=== PATIENT | male | born 1970 | race African-American/Black ===

== ENCOUNTER 2019-12-31 14:09 | Inpatient (IN) ==
[2019-12-31] MEDS ORDERED: PANTOPRAZOLE INJ 80 MG in SODIUM CHLORIDE 0.9% 100 ML IV STA (14:42)
[2019-12-31] MEDS ORDERED: LACTATED RINGERS 1,000 ML IV ONE (14:47)
[2019-12-31] MEDS ORDERED: PANTOPRAZOLE 40 MG VIAL IV ONE (14:53)
[2019-12-31 15:02] LABS: Basophils # 0.1 10*3/uL (0.0-0.2); Basophils % 0.4 % (0.0-0.8); Eosinophils % 0.1 % (0.00-10.9); Hematocrit 32.5 VOL% (42.0-52.0); Hemoglobin 10.4 GM/DL (14.0-18.0); Immature Granulocytes % 0.5 %; Immature Granulocytes Absolute 0.07 #; Lymphocytes # 2.5 10*3/uL (1.4-4.0); Mean Platelet Volume 10.9 FL (9.6-12.0); Monocytes % 5.2 % (1.7-12.7); Neutrophils % 74.8 % (38.7-73.9); Platelet Count 217 T/CUMM (130-400); Red Blood Count 3.87 MC/CUMM (3.8-5.5); Red Cell Distribution Width 14.9 % (9.3-17.3); White Blood Count 12.9 T/CUMM (4-12)
[2019-12-31 15:27] LABS: Albumin 3.5 G/DL (3.4-5.0); Bilirubin,Total 0.8 MG/DL (0.2-1.0); Calcium 8.8 MG/DL (8.5-10.1); Osmolality,Calculated 293.1 MOS/KG (273-304); Total Protein 6.5 G/DL (6.4-8.3)
[2019-12-31] MEDS ORDERED: ONDANSETRON 4 MG/2 ML VIAL IV PRN (16:27)
[2019-12-31] MEDS ORDERED: PANTOPRAZOLE INJ 200 MG in SODIUM CHLORIDE 0.9% 250 ML IV SCH (16:30)
[2019-12-31] MEDS ORDERED: NICOTINE 14 MG/24 HR PATCH TRANSDERM PRN (16:42)
[2019-12-31 18:42] LABS: Hematocrit 27.3 VOL% (42.0-52.0); Hemoglobin 8.8 GM/DL (14.0-18.0)
[2019-12-31] MEDS: SODIUM CHLORIDE 0.9% 1,000 ML IV SCH (18:47)
[2019-12-31] MEDS ORDERED: INFLUENZA VIRUS VACCINE 0.5 ML SYRINGE IM ONE (19:13)
[2019-12-31] MEDS: PANTOPRAZOLE 40 MG VIAL IV SCH (21:16)
[2019-12-31] MEDS: SODIUM CHLOR 0.45% KCL 20 MEQ 20 MEQ/1,000 ML BAG IV SCH (21:29)
[2019-12-31] MEDS: ALBUTEROL 2.5 MG/3 ML NEB RESP TX SCH ×2 (21:40→23:30)
[2020-01-01 00:09] LABS: Apearance,Urine CLEAR (Clear); Bilirubin,Urine Negative (Negative); Blood, Urine Negative (Negative); Glucose,Urine (UA) Negative (Negative); Ketones,Urine Negative (Negative); Mucus,Urine Occasional /LPF (Occasional); Nitrite,Urine Negative (Negative); Protein,Urine Negative; RBC,Urine 1 /HPF (0-4); Squamous Epithelial Cell,Urine Occasional /HPF (0-10); Urine Color Yellow (Yellow); Urine Specific Gravity 1.025 (1.001-1.035); Urine Urobilinogen < 2.0 EU/DL (0.2-1.0); WBC,Urine 1 /HPF (0-6)
[2020-01-01 00:12] LABS: Barbiturates Screen,Urine Negative (Negative); Benzodiazepines Screen,Urine Negative (Negative); Cannabinoid Screen,Urine Positive (Negative); Opiate Screen,Urine Negative (Negative); Phencyclidine Screen,Urine Negative (Negative)
[2020-01-01 01:13] LABS: Hematocrit 20.1 VOL% (42.0-52.0)
[2020-01-01 01:20] LABS: Hemoglobin 6.4 GM/DL (14.0-18.0)
[2020-01-01 05:22] LABS: Basophils # 0.1 10*3/uL (0.0-0.2); Basophils % 0.7 % (0.0-0.8); Eosinophils % 0.4 % (0.00-10.9); Hematocrit 18.3 VOL% (42.0-52.0); Immature Granulocytes % 0.4 %; Immature Granulocytes Absolute 0.04 #; Lymphocytes # 3.8 10*3/uL (1.4-4.0); Lymphocytes % 34.1 % (21.2-54.2); Mean Corpuscular HGB Conc 31.1 GM/DL (32-36); Mean Corpuscular Volume 86.3 FL (87-102); Mean Platelet Volume 11.3 FL (9.6-12.0); Monocytes % 6.4 % (1.7-12.7); Platelet Count 148 T/CUMM (130-400); Red Blood Count 2.12 MC/CUMM (3.8-5.5); Red Cell Distribution Width 15.1 % (9.3-17.3)
[2020-01-01 05:24] LABS: Hemoglobin 5.7 GM/DL (14.0-18.0)
[2020-01-01 05:32] LABS: INR 1.1; PT Patient Result 11.4 SECS (9.6-12.2)
[2020-01-01 05:51] LABS: Albumin 2.4 G/DL (3.4-5.0); Bilirubin,Total 0.4 MG/DL (0.2-1.0); Calcium 7.6 MG/DL (8.5-10.1); Osmolality,Calculated 289.3 MOS/KG (273-304); Thyroid Stimulating Hormone 0.793 uIU/ml (0.358-3.74); Total Protein 4.7 G/DL (6.4-8.3)
[2020-01-01] MEDS: ALBUTEROL 2.5 MG/3 ML NEB RESP TX SCH ×3 (07:13→19:35)
[2020-01-01] MEDS: SODIUM CHLORIDE 0.9% 1,000 ML IV SCH ×3 (07:54→18:23)
[2020-01-01] MEDS: SODIUM CHLOR 0.45% KCL 20 MEQ 20 MEQ/1,000 ML BAG IV SCH ×2 (07:54→10:31)
[2020-01-01] MEDS ORDERED: propofoL 200 MG/20 ML VIAL IV ONE (11:32)
[2020-01-01] MEDS ORDERED: ONDANSETRON 4 MG/2 ML VIAL ONE (11:33)
[2020-01-01] MEDS ORDERED: LIDOCAINE 2% 5 ML VIAL ONE (11:33)
[2020-01-01] MEDS: PANTOPRAZOLE 40 MG VIAL IV SCH (11:50)
[2020-01-01] MEDS ORDERED: PANTOPRAZOLE INJ 80 MG in SODIUM CHLORIDE 0.9% 100 ML IV ONE (12:00)
[2020-01-01] MEDS ORDERED: SODIUM CHLORIDE 0.9% 1,000 ML IV PRN (12:08)
[2020-01-01 12:47] LABS: Hematocrit 19.8 VOL% (42.0-52.0); Hemoglobin 6.5 GM/DL (14.0-18.0)
[2020-01-01] MEDS: PANTOPRAZOLE INJ 200 MG in SODIUM CHLORIDE 0.9% 250 ML IV SCH (13:28)
[2020-01-01 19:24] LABS: Hematocrit 23.5 VOL% (42.0-52.0); Hemoglobin 7.9 GM/DL (14.0-18.0)
[2020-01-02] MEDS: ALBUTEROL 2.5 MG/3 ML NEB RESP TX SCH ×4 (01:03→19:36)
[2020-01-02 06:08] LABS: Albumin 2.4 G/DL (3.4-5.0); Bilirubin,Total 0.9 MG/DL (0.2-1.0); Calcium 7.6 MG/DL (8.5-10.1); Osmolality,Calculated 279.4 MOS/KG (273-304); Total Protein 4.6 G/DL (6.4-8.3)
[2020-01-02 06:15] LABS: Basophils # 0.1 10*3/uL (0.0-0.2); Basophils % 0.8 % (0.0-0.8); Eosinophils # 0.1 10*3/uL (0.0-0.87); Eosinophils % 0.7 % (0.00-10.9); Hematocrit 21.8 VOL% (42.0-52.0); Hemoglobin 7.2 GM/DL (14.0-18.0); Immature Granulocytes % 0.5 %; Immature Granulocytes Absolute 0.05 #; Lymphocytes % 28.1 % (21.2-54.2); Mean Corpuscular Volume 85.8 FL (87-102); Mean Platelet Volume 11.4 FL (9.6-12.0); Monocytes % 5.2 % (1.7-12.7); Neutrophils % 64.7 % (38.7-73.9); Platelet Count 88 T/CUMM (130-400); Red Blood Count 2.54 MC/CUMM (3.8-5.5); Red Cell Distribution Width 14.8 % (9.3-17.3); White Blood Count 10.7 T/CUMM (4-12)
[2020-01-02 06:50] LABS: Anisocytosis 1+
[2020-01-02 06:51] LABS: Platelet Estimate Decreased
[2020-01-02 07:05] LABS: PT Patient Result 10.9 SECS (9.6-12.2)
[2020-01-02] MEDS: PANTOPRAZOLE INJ 200 MG in SODIUM CHLORIDE 0.9% 250 ML IV SCH (14:13)
[2020-01-02 15:22] LABS: Hematocrit 23.6 VOL% (42.0-52.0); Hemoglobin 7.8 GM/DL (14.0-18.0)
[2020-01-02] MEDS: SODIUM CHLORIDE 0.9% 1,000 ML IV SCH (17:46)
[2020-01-03] MEDS: ALBUTEROL 2.5 MG/3 ML NEB RESP TX SCH ×2 (00:13→07:55)
[2020-01-03] MEDS: ACETAMINOPHEN 325 MG TABLET PO PRN (00:39)
[2020-01-03 00:57] LABS: Hematocrit 20.7 VOL% (42.0-52.0); Hemoglobin 6.7 GM/DL (14.0-18.0)
[2020-01-03 05:11] LABS: Basophils # 0.1 10*3/uL (0.0-0.2); Basophils % 0.5 % (0.0-0.8); Eosinophils # 0.2 10*3/uL (0.0-0.87); Eosinophils % 1.8 % (0.00-10.9); Hematocrit 21.5 VOL% (42.0-52.0); Hemoglobin 7.1 GM/DL (14.0-18.0); Immature Granulocytes % 0.4 %; Immature Granulocytes Absolute 0.04 #; Lymphocytes # 2.5 10*3/uL (1.4-4.0); Lymphocytes % 27.7 % (21.2-54.2); Mean Corpuscular Volume 86.7 FL (87-102); Mean Platelet Volume 10.5 FL (9.6-12.0); Monocytes % 5.6 % (1.7-12.7); Platelet Count 106 T/CUMM (130-400); Red Blood Count 2.48 MC/CUMM (3.8-5.5); Red Cell Distribution Width 14.8 % (9.3-17.3); White Blood Count 9.1 T/CUMM (4-12)
[2020-01-03 05:25] LABS: Calcium 8.1 MG/DL (8.5-10.1); Osmolality,Calculated 281.1 MOS/KG (273-304)
[2020-01-03] MEDS ORDERED: EPINEPHrine 1 MG/ML VIAL ONE (08:40)
[2020-01-03 09:02] LABS: PT Patient Result 10.4 SECS (9.6-12.2)
[2020-01-03] MEDS ORDERED: ALBUTEROL 2.5 MG/3 ML NEB RESP TX PRN (10:30)
[2020-01-03 11:54] LABS: Hematocrit 22.9 VOL% (42.0-52.0); Hemoglobin 7.5 GM/DL (14.0-18.0)
[2020-01-03] MEDS: PANTOPRAZOLE INJ 200 MG in SODIUM CHLORIDE 0.9% 250 ML IV SCH (14:26)
[2020-01-03] MEDS: SODIUM CHLORIDE 0.9% 1,000 ML IV SCH (17:51)
[2020-01-03 19:59] LABS: Hematocrit 22.7 VOL% (42.0-52.0); Hemoglobin 7.4 GM/DL (14.0-18.0)
[2020-01-03] MEDS: PANTOPRAZOLE 40 MG TABLET PO SCH (20:33)
[2020-01-04] MEDS: ACETAMINOPHEN 325 MG TABLET PO PRN (02:22)
[2020-01-04 05:09] LABS: Basophils # 0.1 10*3/uL (0.0-0.2); Basophils % 0.7 % (0.0-0.8); Eosinophils # 0.2 10*3/uL (0.0-0.87); Eosinophils % 2.4 % (0.00-10.9); Hematocrit 22.1 VOL% (42.0-52.0); Hemoglobin 7.2 GM/DL (14.0-18.0); Immature Granulocytes % 0.3 %; Immature Granulocytes Absolute 0.03 #; Lymphocytes # 2.6 10*3/uL (1.4-4.0); Lymphocytes % 27.2 % (21.2-54.2); Mean Corpuscular HGB Conc 32.6 GM/DL (32-36); Mean Corpuscular Volume 87.4 FL (87-102); Mean Platelet Volume 10.8 FL (9.6-12.0); Monocytes % 5.6 % (1.7-12.7); Neutrophils % 63.8 % (38.7-73.9); Platelet Count 138 T/CUMM (130-400); Red Blood Count 2.53 MC/CUMM (3.8-5.5); Red Cell Distribution Width 14.9 % (9.3-17.3); White Blood Count 9.5 T/CUMM (4-12)
[2020-01-04 05:48] LABS: Calcium 8.3 MG/DL (8.5-10.1); Osmolality,Calculated 279.3 MOS/KG (273-304)
[2020-01-04 07:41] VITALS: BP 107/67
[2020-01-04] MEDS: PANTOPRAZOLE 40 MG TABLET PO SCH (09:30)
== END 2020-01-04 11:02 | disposition home or self-care (01) | DRG 369 ==
LOC: N.EDINP 14:09 → N.2W 14:09 → N.ED 14:09 → SUATTDRO 16:27 → N.2W 17:20 → SUATTDRO 01-01 10:16 → SUPCPDRO 01-01 10:16 → N.5E 01-01 13:55
PROVIDERS: ADMIT Family Medicine; ATTEND Internal Medicine